=== PATIENT | male | born 1960 | race Caucasian/White ===

== ENCOUNTER → 2020-11-13 | Outpatient (CLI) | payer OTHER ==
[2020-06-29 23:04] VITALS: BP 126/61
[~2020-11-13] MED LIST: ACET325T9 PO; ASPI-630 PO; ASPI-886 PO; ATOR40TA59 PO; CALC200T3 PO; CALC500T31 PO; DEXT30TA2 PO; LINA1TAB5 PO; LINA5TAB PO; LISI-517 PO; METF500T16 PO; METH10TA2 PO; METO-239 PO; METO-247 PO; METO25TA4 PO; METO50TA6 PO; PRAS10TA9 PO; SITA1TAB11 PO; TEST200V3 IM; [UNRECOGNIZED DRUG - CODE] IV
[2020-11-13 10:45] LABS: BASO # 0.1 x10^3/uL (0.0-0.2); BASO % 1 % (0-3); EOS # 0.4 x10^3/uL (0.0-0.7); EOS % 5 % (0-3); HEMATOCRIT 44.1 % (39.0-53.0); HEMOGLOBIN 14.9 g/dL (13.0-17.5); LYMPH # 2.9 x10^3/uL (1.0-4.8); LYMPH % 32 % (24-48); MEAN CORPUSCULAR HEMOGLOBIN 30 pg (25-35); MEAN CORPUSCULAR HGB CONC 34 g/dL (31-37); MEAN CORPUSCULAR VOLUME 88 fL (79-100); MONO # 0.5 x10^3/uL (0.0-1.1); MONO % 6 % (0-9); NEUT # 4.9 x10^3/uL (1.8-7.7); NEUT % 55 % (31-73); PLATELET COUNT 213 x10^3/uL (140-400); RED BLOOD COUNT 5.01 x10^6/uL (4.30-5.70); RED CELL DISTRIBUTION WIDTH 14.6 % (11.5-14.5); WHITE BLOOD COUNT 8.8 x10^3/uL (4.0-11.0)
[2020-11-13 11:08] LABS: ALBUMIN 4.2 g/dL (3.4-5.0); ALBUMIN/GLOBULIN RATIO 1.3 (1.0-1.7); CALCIUM 8.7 mg/dL (8.5-10.1); CREATININE 1.1 mg/dL (0.7-1.3); GFR 68.5; POTASSIUM 4.5 mmol/L (3.5-5.1); TOTAL BILIRUBIN 0.7 mg/dL (0.2-1.0); TOTAL PROTEIN 7.4 g/dL (6.4-8.2)
[2020-11-13 11:09] LABS: CHOLESTEROL/HDL RATIO 2.9
== END ==
LOC: LAB 10:21
PROVIDERS: ATTEND Internal Medicine Cardiovascular Disease
DX: I26.99 Other pulmonary embolism without acute cor pulmonale (principal); E78.5 Hyperlipidemia, unspecified
CPT/HCPCS: 36415; 80053; 80061; 83721; 85025; 85379

== ENCOUNTER 2021-01-08 06:38 | Day surgery (SDC) | payer OTHER ==
[~2021-01-08] VITALS: Ht 182.9 cm; Wt 113.0 kg
[~2021-01-08 06:38] MED LIST changes: +HYDROmorphone 2 MG/ML VIAL IVP PRN; +IV RINGERS,LACTATED 1000ML 1,000 ML IV SCH; +PROCHLORPERAZINE 10 MG/2 ML VIAL. IVP PRN; +RIVA20TA2 PO; +fentaNYL PF VIAL 100 MCG/2 ML VIAL IVP PRN
[2021-01-08] MEDS ORDERED: ceFAZolin 2GM PREMIX 2 GM/50 ML BAG IV ONE (07:00)
[2021-01-08] MEDS ORDERED: LIDOCAINE 2% PF 5 ML VIAL. ONE ×2 (07:03→08:44)
[2021-01-08] MEDS ORDERED: DEXAMETHASONE SOD PHOS 4 MG/ML VIAL ONE (07:03)
[2021-01-08] MEDS ORDERED: PROPOFOL 10 MG/ML (20ML) VIAL. IV ONE (07:03)
[2021-01-08] MEDS ORDERED: ONDANSETRON PF 4 MG/2 ML VIAL. ONE (07:03)
[2021-01-08] MEDS ORDERED: ROCURONIUM 50 MG/5 ML VIAL. ONE (07:06)
[2021-01-08] MEDS ORDERED: GLYCOPYRROLATE 1 MG/5 ML VIAL. ONE (07:07)
[2021-01-08] MEDS ORDERED: NEOSTIGMINE METHYLSULFATE 5 MG/5 ML SYRINGE. ONE (07:07)
[2021-01-08] MEDS ORDERED: ACETAMINOPHEN 500 MG TABLET PO ONE ×2 (07:13→07:15)
[2021-01-08] MEDS ORDERED: BUPIVACAINE-EPI 0.25%-1:200000 MPF 30 ML VIAL. ONE (07:20)
[2021-01-08] MEDS ORDERED: MINERAL OIL for SURGERY 10 ML VIAL. MC ONE (07:20)
[2021-01-08] MEDS: INSULIN LISPRO 100 UNIT/ML 3ML VIAL for OP,RR ONLY. SQ PRN ×2 (07:35→09:13)
[2021-01-08] MEDS ORDERED: fentaNYL PF VIAL 100 MCG/2 ML VIAL ONE ×2 (07:51→08:57)
[2021-01-08] MEDS ORDERED: KETOROLAC 30 MG/ML VIAL. ONE (08:01)
[2021-01-08] MEDS ORDERED: BUPIVACAINE-EPI 0.25%-1:200000 MPF 30 ML VIAL. INJ ONE (08:11)
--- NOTE | 2021-01-08 08:43 | PDOC4 ---
Operative Note Operative Note Date: January 08, 2021 at 841 Preoperative diagnosis: Incarcerated medical hernia Postoperative diagnosis: Same Procedure: Robotic assisted laparoscopic ventral hernia repair with mesh Surgeon: Jaron Specimen: None Dictation: Patient is a 60-year-old gentleman is complained of a painful bulge at his umbilicus for several years has been getting larger. Procedure of robotic assisted laparoscopic ventral hernia repair with mesh was explained to the patient in detail risk benefits were also discussed including bleeding infection injury to intra-abdominal contents possible necessitating further open operations alternatives to this procedure also discussed with the patient who seemed to understand and gave both verbal and written consent to have the procedure performed. Patient was taken to the operating room placed in the supine position general anesthesia was initiated once patient was sleeping intubated his abdomen was prepped and draped usual sterile fashion using ChloraPrep. An area in the left upper quadrant was injected with quarter percent Marcaine with epinephrine incision was made 11 blade scalpel and a 5 mm Visiport was placed under direct visualization into the abdomen creating pneumoperitoneum once this was complete 5 mm camera was placed in the abdomen which was inspected no other ab maladies were noted as noted there was a ventral hernia with incarcerated omentum. A 8 mm da Nas ports placed in the left midabdomen and an 8 mm da Nas port was placed in the left lower abdomen and the 5 mm Visiport was changed out for 8 mm da Nas port. Da Nas robot was brought and docked all port sites surgeon went to the robotic console using a grasper and Endo Aniyah scissors the omentum was reduced from the hernia defect. The hernia defect was then closed with a running 2 OV lock nonabsorbable suture ventral light ST mesh was then placed over the hernia defect this was sewn into place with a running 2 OV lock absorbable suture. Sutures removed from the abdomen the da Nas robot was undocked from all port sites. Ports were all removed the port sites were all closed with 4-0 subcuticular Monocryl Mastisol Steri-Strips and island dressings were applied. Patient was awakened and extubated in the operating room taken to recovery in stable condition all sponge instrument needle counts listed as correct estimated blood loss 10 mL. YELENA OCHOA MD Jan 08, 2021 08:43
--- NOTE | 2021-01-08 08:45 | DISCH ---
DISCHARGE INSTRUCTIONS Condition on Discharge Condition on Discharge: Stable Activity After Discharge Activity Instructions for Disc: Avoid exertion Other activity instructions: No lifting more than 20 pounds for 2 weeks Diet after Discharge Diet after Discharge: Cardiac Wound Incision Care Wound/Incision Care: No wound care needed Other wound/incision instructi: Cinthia shower in 24 hours Contacting the after DC Call your doctor for: If your condition worsens Follow-Up Follow up with: Dr. Ochoa in 2 weeks YELENA OCHOA MD Jan 08, 2021 08:45
[2021-01-08] MEDS ORDERED: OXYC-325 PO (08:52)
[2021-01-08] MEDS: fentaNYL PF VIAL 100 MCG/2 ML VIAL IVP PRN ×2 (09:02→09:09)
[2021-01-08] MEDS ORDERED: MORPHINE SULFATE 2 MG/ML VIAL. ONE (09:16)
[2021-01-08] MEDS: MORPHINE SULFATE 2 MG/ML VIAL. IVP PRN ×2 (09:18→09:38)
[2021-01-08] MEDS ORDERED: oxyCODONE/APAP 5/325 1 TAB TABLET PO ONE ×2 (09:30)
[2021-01-08 09:50] VITALS: BP 118/61
== END 2021-01-08 09:25 | disposition home or self-care (01) ==
LOC: SURG 06:38
PROVIDERS: ATTEND Surgery
DX: K43.6 Other and unspecified ventral hernia with obstruction, without gangrene (principal); I10 Essential (primary) hypertension; E78.00 Pure hypercholesterolemia, unspecified; E11.9 Type 2 diabetes mellitus without complications; M19.90 Unspecified osteoarthritis, unspecified site; G47.30 Sleep apnea, unspecified; I25.10 Atherosclerotic heart disease of native coronary artery without angina pectoris; E66.9 Obesity, unspecified; K21.9 Gastro-esophageal reflux disease without esophagitis; Z87.891 Personal history of nicotine dependence; Z79.82 Long term (current) use of aspirin; Z79.899 Other long term (current) drug therapy; Z98.890 Other specified postprocedural states
CPT/HCPCS: 49653; 82962; A4364; A4930; A6219; C1781; J0690; J1100; J1885; J2270; J2405; J2704; J2710; J3010; J3490; S2900; A4657

== ENCOUNTER → 2021-05-18 | Outpatient (CLI) | payer OTHER ==
[2021-01-18 10:21] VITALS: BP 113/60
[~2021-05-18] MED LIST changes: +CLOP75TA PO; -HYDROmorphone 2 MG/ML VIAL IVP PRN; -IV RINGERS,LACTATED 1000ML 1,000 ML IV SCH; -LISI-517 PO; +LISI5TAB15 PO; +METH-572 PO; -METH10TA2 PO; +OXYC-325 PO; +OXYC1TAB15 PO; -PROCHLORPERAZINE 10 MG/2 ML VIAL. IVP PRN; +SERT-266 PO; -fentaNYL PF VIAL 100 MCG/2 ML VIAL IVP PRN
--- NOTE | 2021-05-18 13:14 | CARD ---
MR#: [id number] Date of Study: 05/18/2021 Ordering Physician: ROMERO URBINA, Referring Physician: ROMERO URBINA, Tech: Na Weldon [facility] APPROVED REPORT EXAM: Two-dimensional and M-mode echocardiogram with Doppler and color Doppler. Other Information Quality : AverageHR: 50bpm Rhythm : NSR INDICATION Cardiac Disease: CAD Surgery/Intervention CABG: RISK FACTORS Hypertension Obesity Hyperlipidemia Diabetes 2D DIMENSIONS RVDd3.5 (2.9-3.5cm)Left Atrium(2D)3.9 (1.6-4.0cm) IVSd1.3 (0.7-1.1cm)Aortic Root(2D)4.4 (2.0-3.7cm) LVDd5.3 (3.9-5.9cm)LVOT Diameter2.2 (1.8-2.4cm) PWd1.5 (0.7-1.1cm)LVDs3.4 (2.5-4.0cm) FS (%) 35.6 %SV89.1 ml LVEF(%)64.6 (>50%) Aortic Valve AoV Peak Mina.126.0cm/sAoV VTI30.1cm AO Peak GR.6.3mmHgLVOT Peak Mina.124.8cm/s AO Mean GR.3mmHgAVA (VMAX)3.88cm2 Pulmonary Valve PV Peak Uaatvhib806.8cm/s Tricuspid Valve TR P. [id number]/sTR Peak Gr.21mmHg LEFT VENTRICLE The left ventricle is normal size. There is mild concentric left ventricular hypertrophy. The left ve ntricular systolic function is normal. Estimated ejection fraction 55-60%. There is normal LV segmen juan wall motion. The left ventricular diastolic function and filling is normal for age. RIGHT VENTRICLE The right ventricle is normal size. There is normal right ventricular wall thickness. The right ventr icular systolic function is normal. ATRIA The left atrium size is normal. The right atrium size is normal. The interatrial septum is intact wit h no evidence for an atrial septal defect or patent foramen ovale as noted on 2-D or Doppler imaging. AORTIC VALVE The aortic valve is normal in structure and function. Doppler and Color Flow revealed trace aortic re gurgitation. There is no significant aortic valvular stenosis. MITRAL VALVE The mitral valve is normal in structure and function. There is no evidence of mitral valve prolapse. There is no mitral valve stenosis. Doppler and Color-flow revealed trace mitral regurgitation. TRICUSPID VALVE The tricuspid valve is normal in structure and function. Doppler and Color Flow revealed mild tricusp id regurgitation. Estimated PAP 24 mmHg. There is no tricuspid valve stenosis. GREAT VESSELS The aortic root is moderately enlarged at 4.4 cm. The IVC is normal in size and collapses <50% with i nspiration. PERICARDIAL EFFUSION There is no evidence of significant pericardial effusion. Critical Notification Critical Value: No <Conclusion> The left ventricular systolic function is normal. Estimated ejection fraction 55-60%. There is normal LV segmental wall motion. Trace aortic insufficiency. Trace mitral regurgitation. Mild tricuspid regurgitation. Estimated PAP 24 mmHg. The aortic root is moderately enlarged at 4.4 cm. There is no evidence of significant pericardial effusion. Signed by : Henry Huffman, Electronically Approved : 05/18/2021 13:14:13
== END ==
LOC: ECHO 08:59
PROVIDERS: ATTEND Internal Medicine Cardiovascular Disease
DX: I07.1 Rheumatic tricuspid insufficiency (principal); R07.9 Chest pain, unspecified; I25.10 Atherosclerotic heart disease of native coronary artery without angina pectoris
CPT/HCPCS: 93306